=== PATIENT | male | born 1945 | race Caucasian/White ===

== ENCOUNTER 2021-04-21 16:51 | Emergency (ER) | payer OTHER ==
[2021-04-21 17:22] VITALS: BP 147/88; PULSE 89; RESP 16; TEMP 99.6
--- NOTE | 2021-04-21 18:15 | XR ---
EXAMINATION TYPE: XR chest 2V DATE OF EXAM: 04/21/2021 COMPARISON: NONE HISTORY: Pain TECHNIQUE: 2 views FINDINGS: There is some blunting of the left costophrenic angle. There is evidence for multiple later al left rib fractures. These are displaced more than 50%. There is pleural thickening on the left lat eral chest wall. No pneumothorax. Heart size is normal. There is intramedullary kirsty in the right humerus. There is no heart failure. Th ere are no hilar masses. Mediastinum is normal. 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 Multiple left-sided rib fr actures. These appear acute. No heart failure seen. Normal heart.
--- NOTE | 2021-04-21 19:41 | ED ---
General Adult HPI - General Chief complaint: Fall Stated complaint: fall/[facility] by [facility] Time Seen by Provider: 04/21/21 19:03 Source: patient, RN notes reviewed, old records reviewed Mode of arrival: wheelchair Limitations: no limitations - History of Present Illness Initial comments: 76-year-old male who presented for evaluation of fall which occurred on . He is presenting in the evening hours of Tuesday. He had fallen at home and was unable to get up for approximately 12 hours. He did have facial injury. No anticoagulation, he currently takes 81 mg of aspirin. He has a remote history of CVA with residual left-sided weakness and minimal left-sided facial droop. Patient is complaining predominantly of some posterior left flank and rib pain on the left. No abdominal pain. No central chest pain. He states he tripped and this was the cause of his fall. Accompanied daughter. - Related Data Previous Rx's Medication Instructions Recorded HYDROcodone/APAP 5-325MG [[place] 1 tab PO Q6HR PRN #12 tab 04/21/21 5-325] Allergies Allergy/AdvReac Type Severity Reaction Status Date / Time No Known Allergies Allergy Verified 04/21/21 17:22 Review of Systems ROS Statement: Those systems with pertinent positive or pertinent negative responses have been documented in the HPI. ROS Other: All systems not noted in ROS Statement are negative. Past Medical History Past Medical History: Cancer, COPD, CVA/TIA, Hyperlipidemia, Hypertension, Prostate Disorder History of Any Multi-Drug Resistant Organisms: None Reported Past Surgical History: Prostate Surgery Additional Past Surgical History / Comment(s): prostate removed Past Psychological History: No Psychological Hx Reported Smoking Status: Current every day smoker Past Alcohol Use History: Occasional Past Drug Use History: None Reported General Exam Limitations: no limitations General appearance: alert, in no apparent distress Head exam: Present: other (Left facial ecchymosis and soft tissue swelling.) Eye exam: Present: normal appearance Neck exam: Present: normal inspection, full ROM. Absent: tenderness Respiratory exam: Present: normal lung sounds bilaterally, chest wall tenderness (Left lateral and posterior chest wall tenderness). Absent: respiratory distress Cardiovascular Exam: Present: regular rate, normal rhythm GI/Abdominal exam: Present: soft. Absent: distended, tenderness, guarding Extremities exam: Present: normal inspection, normal capillary refill. Absent: pedal edema Neurological exam: Present: alert, oriented X3, motor sensory deficit (Slight facial droop, normal speech, left upper extremity drift.). Absent: CN II-XII intact Skin exam: Present: warm, dry Course Vital Signs 04/21/21 17:17 Temperature 99.6 F Pulse Rate 89 Respiratory 16 Rate Blood Pressure 147/88 O2 Sat by Pulse 95 Oximetry EKG Findings - EKG Comments: EKG Findings:: EKG: Sinus rhythm no ST segment elevation, rate of 90, W[place] interval 171, QRS duration 84, QTC 392. Medical Decision Making - Medical Decision Making 76-year-old male presents status post fall which occurred 3 days prior. Patient had required assistance to stand was on the ground for about 12 hours. His main complaint is left lateral chest wall pain and flank pain. Patient did have a facial injury. No anticoagulation. CT brain is performed which shows an old right internal capsule infarct, no acute hemorrhage. Cervical spine negative for fracture subluxation. Chest x-ray does show left lateral rib fractures. No pneumothorax. Laboratory testing reveals normal CBC, mildly elevated creatinine kinase. Normal lites lites, normal kidney function. I did offer this patient admission for pain control. However patient declines. He prefers to be discharged home he states he has been dealing with the pain for 3 days and believes he can continue at home. He is given an incentive spirometer and prescription for [place]. His daughter is at bedside is agreeable with plan. - Lab Data Result diagrams: 04/21/21 19:11 04/21/21 19:11 Lab Results 04/21/21 04/21/21 04/21/21 Range/Units 19:11 19:11 19:11 WBC 13.0 H (3.8-10.6) k/uL RBC 4.33 (4.30-5.90) m/uL Hgb 15.2 (13.0-17.5) gm/dL Hct 44.0 (39.0-53.0) % MCV 101.4 H (80.0-100.0) fL MCH 35.1 H (25.0-35.0) pg MCHC 34.6 (31.0-37.0) g/dL RDW 12.1 (11.5-15.5) % Plt Count 286 (150-450) k/uL MPV 8.5 Neutrophils % 77 % Lymphocytes % 11 % Monocytes % 7 % Eosinophils % 3 % Basophils % 1 % Neutrophils # 9.9 H (1.3-7.7) k/uL Lymphocytes # 1.5 (1.0-4.8) k/uL Monocytes # 0.9 (0-1.0) k/uL Eosinophils # 0.3 (0-0.7) k/uL Basophils # 0.1 (0-0.2) k/uL PT 9.8 (9.0-12.0) sec INR 0.9 (<1.2) APTT 25.6 (22.0-30.0) sec Sodium 138 (137-145) mmol/L Potassium 4.4 (3.5-5.1) mmol/L Chloride 101 (98-107) mmol/L Carbon Dioxide 28 (22-30) mmol/L Anion Gap 9 mmol/L BUN 14 (9-20) mg/dL Creatinine 0.76 (0.66-1.25) mg/dL Est GFR (CKD-EPI)AfAm >90 (>60 ml/min/1.73 sqM) Est GFR (CKD-EPI)NonAf >90 (>60 ml/min/1.73 sqM) Glucose 121 H (74-99) mg/dL Calcium 9.5 (8.4-10.2) mg/dL Total Bilirubin 1.4 H (0.2-1.3) mg/dL AST 62 H (17-59) U/L ALT 53 H (4-49) U/L Alkaline Phosphatase 90 (38-126) U/L Creatine Kinase 667 H (55-170) U/L Total Protein 6.9 (6.3-8.2) g/dL Albumin 4.0 (3.5-5.0) g/dL Disposition Clinical Impression: Fall, Concussion, Rib fractures Disposition: HOME SELF-CARE Condition: Fair Instructions (If sedation given, give patient instructions): Rib Fracture (ED), Concussion (ED), Fall Prevention for Older Adults (ED) Prescriptions: HYDROcodone/APAP 5-325MG [[place] 5-325] 1 tab PO Q6HR PRN #12 tab PRN Reason: Pain Is patient prescribed a controlled substance at d/c from ED?: No Referrals: [facility],Clinic [Primary Care Provider] - 1-2 days Time of Disposition: 21:05
[2021-04-21 19:43] LABS: Basophils # (A) 0.1 k/uL (0-0.2); Basophils % (A) 1 %; Eosinophils # (A) 0.3 k/uL (0-0.7); Eosinophils % (A) 3 %; HGB 15.2 gm/dL (13.0-17.5); Lymphocytes # (A) 1.5 k/uL (1.0-4.8); Lymphocytes % (A) 11 %; MCH 35.1 pg (25.0-35.0); MCHC 34.6 g/dL (31.0-37.0); MCV 101.4 fL (80.0-100.0); Mean Platelet Volume 8.5; Monocytes # (A) 0.9 k/uL (0-1.0); Monocytes % (A) 7 %; Neutrophils # (A) 9.9 k/uL (1.3-7.7); Neutrophils % (A) 77 %; Platelet Count 286 k/uL (150-450); RBC 4.33 m/uL (4.30-5.90); RDW 12.1 % (11.5-15.5)
[2021-04-21 19:53] LABS: ALT 53 U/L (4-49); AST 62 U/L (17-59); African American GFR (CKD) >90 (>60 ml/min/1.73 sqM); Alkaline Phosphatase 90 U/L (38-126); Anion Gap 9 mmol/L; Blood Urea Nitrogen 14 mg/dL (9-20); Calcium 9.5 mg/dL (8.4-10.2); Carbon Dioxide 28 mmol/L (22-30); Chloride 101 mmol/L (98-107); Creatine Kinase 667 U/L (55-170); Glucose 121 mg/dL (74-99); INR 0.9 (<1.2); Non-African American GFR(CKD) >90 (>60 ml/min/1.73 sqM); Partial Thromboplastin Time 25.6 sec (22.0-30.0); Potassium 4.4 mmol/L (3.5-5.1); Prothrombin Time 9.8 sec (9.0-12.0); Sodium 138 mmol/L (137-145); Total Bilirubin 1.4 mg/dL (0.2-1.3); Total Protein 6.9 g/dL (6.3-8.2)
--- NOTE | 2021-04-21 20:16 | CT ---
EXAMINATION TYPE: CT brain lelia wo con DATE OF EXAM: 04/21/2021 COMPARISON: None HISTORY: fall CT DLP: combined DLP 1119 mGycm Automated exposure control for dose reduction was used. Images of brain and cervical spine obtained without contrast. There is some sclerosis and deformity of the right posterior frontal bone. No acute fracture seen. There is some enlargement of the frontal horn right lateral ventricle with hypodensity right internal capsule related to old infarct. There is no midline shift. There is no sign of intracranial hemorrha ge. The skull base is intact. There is normal aeration of the mastoid sinuses. There is mild mucosal thickening in the frontal and ethmoid and sphenoid sinuses. There is mild wall thickening of the maxillary sinuses. No focal bone destruction. Cervical vertebrae show mild straightening. There is degenerative disc space narrowing from C3 to C7 with spurring of the endplates. Facet joints are intact. There is no compression fracture. I see no b pamela destructive process. 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 No acute intracranial abnormality. 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 No fracture.
--- NOTE | 2021-04-21 20:27 | CT ---
EXAMINATION TYPE: CT facial bones wo con DATE OF EXAM: 04/21/2021 COMPARISON: None HISTORY: fall CT DLP: combined DLP 1119 mGycm Automated exposure control for dose reduction was used. Images obtained from the bottom of the mandible to the top of the frontal sinuses without contrast. There is mucosal thickening in the frontal and ethmoid and sphenoid sinuses. There is previous surger y on the maxillary sinuses. There is mucosal mild thickening in the maxillary sinuses. The mandibular ring is intact. Temporomandibular joints are intact. Zygomatic arches appear normal. N denzel bone is intact. Maxilla is intact. There is no evidence of orbital mass. There is no evidence of orbital blowout fracture. There is mild subcutaneous edema anterior to the left zygoma. IMPRESSION: There is pansinusitis. Previous sinus surgery. Mild soft tissue swelling on the left side of the face. No fracture seen.
[2021-04-21] MEDS ORDERED: HYDROcodone/APAP 5-325MG 1 EACH TAB PO STA (21:05)
== END 2021-04-21 21:23 | disposition home or self-care (01) ==
LOC: EC 16:51
DX: S06.0X0A Concussion without loss of consciousness, initial encounter (principal); S22.32XA Fracture of one rib, left side, initial encounter for closed fracture; J44.9 Chronic obstructive pulmonary disease, unspecified; E78.5 Hyperlipidemia, unspecified; I10 Essential (primary) hypertension; F17.200 Nicotine dependence, unspecified, uncomplicated; Z86.73 Personal history of transient ischemic attack (TIA), and cerebral infarction without residual deficits; W01.0XXA Fall on same level from slipping, tripping and stumbling without subsequent striking against object, initial encounter
CPT/HCPCS: 36415; 70450; 70486; 71046; 72125; 80053; 82550; 85025; 85610; 85730; 93005; 99284